=== PATIENT | female | born 1945 | race Caucasian/White ===

== ENCOUNTER 2021-05-17 12:43 | Emergency (ER) | payer MEDICARE ==
[~2021-05-17] VITALS: Ht 157.5 cm; Wt 49.9 kg
[2021-05-17] MEDS ORDERED: KETOROLAC TROMETHAMINE INJ 30 MG/ML VIAL IV ONE ×2 (13:00→15:00)
[2021-05-17] MEDS ORDERED: IV NS 0.9% 1,000 ML BAG IV ONE (13:00)
--- NOTE | 2021-05-17 13:00 | NUR ---
BIB DAUGHTER C/O FLANK PAIN P/S 06/20 STARTED THIS MORNING, WAS AT URGENT CARE TODAY AND WAS ADVISED TO GO TO ER FOR CT
[2021-05-17] MEDS ORDERED: KETOROLAC TROMETHAMINE 15 MG/ML VIAL ONE ×2 (13:03→14:46)
--- NOTE | 2021-05-17 13:10 | NUR ---
URINE COLLECTED AND SENT TO LAB
--- NOTE | 2021-05-17 13:16 | NUR ---
IV ESTABLISHED R AC 20G. LABS COLLETCED AND DRAWN. COVERTED TO SALINE LOCK.
[2021-05-17 13:18] LABS: BASOPHILS % (AUTO) 0.4 % (0.0-2.0); EOSINOPHILS % (AUTO) 0.9 % (0.0-6.0); HEMATOCRIT 40 % (33-45); HEMOGLOBIN 13.5 g/dL (11.5-14.8); LYMPHOCYTES # (AUTO) 2.4 K/uL (0.8-4.8); MEAN CORPUSCULAR HGB CONC 34 g/dl (31.0-36.0); MEAN CORPUSCULAR VOLUME 97 fL (82-100); MONOCYTES # (AUTO) 0.8 K/uL (0.1-1.30); MONOCYTES % (AUTO) 7.5 % (2.0-12.0); NEUTROPHILS # (AUTO) 7.7 K/uL (1.8-8.9); NEUTROPHILS % (AUTO) 69.2 % (43.0-81.0); PLATELET COUNT (AUTO) 289 K/uL (150-450); RED BLOOD CELL COUNT(AUTO) 4.15 MIL/uL (4.0-5.2); WHITE BLOOD COUNT (AUTO) 11.1 K/uL (4.3-11.0)
--- NOTE | 2021-05-17 13:24 | NUR ---
PT IS BACK FROM THE CT SCAN.
[2021-05-17 13:48] LABS: ALBUMIN 4.3 g/dL (3.4-5.0); BILIRUBIN,DIRECT 0.1 mg/dL (0.0-0.2); BILIRUBIN,TOTAL 0.4 mg/dL (0.2-1.0); CALCIUM, SERUM 9.6 mg/dL (8.5-10.1); CREATININE 0.7 mg/dL (0.6-1.3); POTASSIUM 3.9 mmol/L (3.5-5.1); TOTAL PROTEIN, SERUM 7.8 g/dL (6.4-8.2)
[2021-05-17 14:03] LABS: BILIRUBIN,URINE NEGATIVE (NEGATIVE); COLOR,URINE YELLOW (YELLOW); LEUKOCYTE ESTERASE ,URINE NEGATIVE (NEGATIVE); NITRITE, URINE NEGATIVE (NEGATIVE); PH,URINE 5.5 (5.0-8.0); PROTEIN,URINE TRACE mg/dl (NEGATIVE); UGLUCOSE NEGATIVE (NEGATIVE); UROBILINOGEN,URINE 0.2 EU/dL (0.2)
--- NOTE | 2021-05-17 14:28 | NUR ---
CALLED DR. KNOTT [phone] LEFT .
[2021-05-17] MEDS ORDERED: HYDR-4303 PO (14:41)
[2021-05-17] MEDS ORDERED: ONDA4TAB5 PO (14:41)
[2021-05-17] MEDS ORDERED: TAMS-12 PO (14:41)
[2021-05-17] MEDS ORDERED: IBUP-1955 PO (14:41)
[2021-05-17] MEDS ORDERED: ONDANSETRON HCL/PF 4 MG/2 ML VIAL ONE (14:46)
[2021-05-17] MEDS ORDERED: FENTANYL PF 100MCG/2ML AMPUL ONE (14:47)
[2021-05-17] MEDS ORDERED: ONDANSETRON HCL/PF 4 MG/2 ML VIAL IV ONE (15:00)
[2021-05-17] MEDS ORDERED: FENTANYL PF 100MCG/2ML AMPUL IV ONE (15:00)
[2021-05-17 15:22] VITALS: BP 147/97
[2021-05-17 15:51] LABS: BACTERIA,URINE RARE /HPF (None Seen); RBC,URINE 51-80 /HPF (0-2); WBC,URINE 0-2 /HPF (0-3)
== END 2021-05-17 15:23 | disposition home or self-care (01) ==
LOC: ER 12:47
DX: N13.2 Hydronephrosis with renal and ureteral calculous obstruction (principal); N23 Unspecified renal colic
CPT/HCPCS: 36415; 74176; 80048; 80076; 81001; 83690; 85025; 96361; 96374; 96375; 96376; 99284; J1885 ×2; J2405; J3010; J7030